=== PATIENT | male | born 1990 | race Caucasian/White ===

== ENCOUNTER 2016-08-07 18:29 | Emergency (ER) | payer OTHER ==
[2016-08-07] MEDS ORDERED: DEXAMETHASONE 10 MG/ML VIAL PO STA (18:58)
[2016-08-07] MEDS ORDERED: DEXAMETHASONE 10 MG/ML VIAL ONE (19:05)
[2016-08-07] MEDS ORDERED: CHERRY SYRUP 10 ML UDC PO ONE (19:05)
== END 2016-08-07 19:24 | disposition home or self-care (01) ==
DX: J02.8 Acute pharyngitis due to other specified organisms (principal); B97.89 Other viral agents as the cause of diseases classified elsewhere
CPT/HCPCS: 87070; 87430; 99283; A9270

== ENCOUNTER 2016-09-26 11:24 | Emergency (ER) | payer OTHER ==
[2016-09-26 11:52] VITALS: BP 145/74
[2016-09-26 12:21] LABS: RAPID STREP SCREEN REAGENT QC YELLOW (YELLOW)
[2016-09-26] MEDS ORDERED: IBUPROFEN 800 MG TABLET PO STA (13:20)
[2016-09-26] MEDS ORDERED: DEXAMETHASONE 10 MG/ML VIAL PO STA (13:20)
[2016-09-26] MEDS ORDERED: CHERRY SYRUP 10 ML UDC PO ONE (13:23)
[2016-09-26] MEDS ORDERED: DEXAMETHASONE 10 MG/ML VIAL ONE (13:23)
[2016-09-26] MEDS ORDERED: IBUPROFEN 800 MG TABLET PO ONE (13:23)
--- NOTE | 2016-09-26 13:24 | ED Physician Documentation ---
PD HPI HEENT - Stated complaint Stated Complaint: FEVER/SORE THROAT - Chief complaint Chief Complaint: General - History obtained from History obtained from: Patient, Family - History of Present Illness Timing - onset: How many days ago (3) Timing - duration: Days (3) Timing - details: Gradual onset, Still present Location: Throat Improves: Medication Worsens: Swalllowing Associated symptoms: Fever, Congestion, Swollen nodes, Headache, Cough Similar symptoms before: Diagnosis (strep pharyngitis) Recently seen: Clinic, Emergency Dept - Additional information Additional information: 26 y/o male with a sore throat for the past 3 days has had strep 16 times at age 9 and then had his tonsils out. He has had strep in July with a negative rapid strep followed by a culture +. He subsequently had a negative strep last month with sore throat as well. Review of Systems Constitutional: reports: Fever, Chills, Myalgias, Fatigue Eyes: denies: Decreased vision Ears: denies: Ear pain, Drainage/discharge Nose: reports: Rhinorrhea / runny nose, Congestion Throat: reports: Sore throat Cardiac: denies: Chest pain / pressure, Palpitations Respiratory: reports: Cough. denies: Dyspnea GI: denies: Vomiting PD PAST MEDICAL HISTORY - Past Surgical History Past Surgical History: Yes HEENT: Tonsil/Adenoidectomy - Present Medications Home Medications: Ambulatory Orders Medication Instructions Recorded Confirmed Amoxicillin 500 mg PO TID #30 capsule 09/26/16 - Allergies Allergies/Adverse Reactions: Allergies Allergy/AdvReac Type Severity Reaction Status Date / Time No Known Drug Allergies Allergy Verified 08/07/16 18:37 - Social History Does the pt smoke?: No Smoking Status: Never smoker Does the pt drink ETOH?: No Does the pt have substance abuse?: No - Immunizations Immunizations are current?: Yes - POLST Patient has POLST: No PD ED PE NORMAL - Vitals Vital signs reviewed: Yes (hypertensive and febrile ) - General General: No acute distress, Well developed/nourished - HEENT HEENT: Atraumatic, PERRL, EOMI, Other (both TM's are erythematous with distortion of the landmarks. The pharynx is with some swelling to the uvula that is midline. ) - Neck Neck: Supple, no meningeal sign, No bony TTP - Cardiac Cardiac: RRR, No murmur - Respiratory Respiratory: No respiratory distress, Clear bilaterally - Abdomen Abdomen: Soft, Non tender - Back Back: No CVA TTP, No spinal TTP - Derm Derm: Warm and dry, No rash - Extremities Extremities: No deformity, No edema - Neuro Neuro: No motor deficit, No sensory deficit - Psych Psych: Normal mood, Normal affect Results - Vitals Vitals: Vital Signs - 24 hr 09/26/16 11:49 Temperature 38.1 C H Heart Rate 68 Respiratory 16 Rate Blood Pressure 145/74 H O2 Saturation 100 Oxygen O2 Source Room air - Labs Labs: Laboratory Tests 09/26/16 11:55 Group A Strep Rapid POSITIVE H PD MEDICAL DECISION MAKING - ED course Complexity details: reviewed old records, reviewed results, re-evaluated patient , considered differential, d/w patient, d/w family ED course: 26 y/o male with sore throat and + strep screen has OM on exam as well. He has recurrence of symptoms and I have encouraged him to seek follow up with his primary to re-examine the ears in 2-3 weeks for resolution with the thought of treating if needed. Departure - Departure Disposition: 01 Home, Self Care Clinical Impression: Strep pharyngitis Otitis media Qualifiers: Otitis media type: suppurative Laterality: bilateral Chronicity: acute Recurrence: not specified as recurrent Spontaneous tympanic membrane rupture: without spontaneous rupture Qualified Code(s): H66.003 - Acute suppurative otitis media without spontaneous rupture of ear drum, bilateral Condition: Stable Instructions: ED Strep Pharyngitis Conf, ED Otitis Media Acute Adult Follow-Up: [facility] [Provider Group] Prescriptions: Amoxicillin 500 mg PO TID #30 capsule Comments: Today in the Emergency Department your blood pressure was elevated. This can happen from the stress of the visit itself, from a current illness or circumstance or from uncontrolled hypertension. If you take blood pressure medications take your usual mediations, have your blood pressure re-checked in an appropriate setting and follow up any elevation with your primary care doctor. Forms: Activity restrictions
== END 2016-09-26 13:42 | disposition home or self-care (01) ==
LOC: ED 11:24
DX: J02.0 Streptococcal pharyngitis (principal); H66.003 Acute suppurative otitis media without spontaneous rupture of ear drum, bilateral; R03.0 Elevated blood-pressure reading, without diagnosis of hypertension
CPT/HCPCS: 87430; 99282; 99283; A9270

== ENCOUNTER 2017-04-29 22:59 | Emergency (ER) | payer OTHER ==
[2017-04-29] MEDS ORDERED: DEXAMETHASONE 10 MG/ML VIAL PO STA (23:31)
[2017-04-29] MEDS ORDERED: PSEUDOEPHEDRINE 30 MG TABLET PO STA (23:31)
[2017-04-29] MEDS ORDERED: AMOX/CLAV 875 MG/125 MG TABLET PO STA (23:31)
[2017-04-29] MEDS ORDERED: KETOROLAC 60 MG/2 ML VIAL IM STA (23:31)
--- NOTE | 2017-04-29 23:38 | ED Physician Documentation ---
PD HPI HEENT - Stated complaint Stated Complaint: THROAT PX/MIGRAINE - Chief complaint Chief Complaint: Heent - History obtained from History obtained from: Patient - History of Present Illness Timing - onset: How many days ago (3) Timing - details: Gradual onset, Still present Location: Right ear, Left ear, Throat Improves: Medication Worsens: Swalllowing, Position Associated symptoms: Congestion. No: Fever Similar symptoms before: Work up / diagnostics, Treatment Recently seen: Not recently seen - Additional information Additional information: Patient is a 26 year old male with recurrent ear and throat infections who is presenting to the emergency department for sore throat and ear pain. patient states that he is coming back from leave, and over [place] last couple fo days he had really bad ear pain, and when he was on the plane he was unable to pop his ears and he still has a lot of worsening pressure. Review of Systems Constitutional: denies: Fever, Chills Ears: reports: Ear pain Nose: reports: Congestion Throat: reports: Sore throat Cardiac: reports: Reviewed and negative Respiratory: denies: Cough, Wheezing GI: reports: Reviewed and negative : reports: Reviewed and negative Musculoskeletal: reports: Reviewed and negative Neurologic: reports: Reviewed and negative PD PAST MEDICAL HISTORY - Past Medical History Past Medical History: Yes Other Past Medical History: Multi ear infections when young & strep - Past Surgical History Past Surgical History: Yes HEENT: Myringotomy (tubes), Tonsil/Adenoidectomy - Present Medications Home Medications: Ambulatory Orders Medication Instructions Recorded Confirmed Atorvastatin Calcium 80 mg PO DAILY 04/29/17 04/29/17 Doxepin HCl 10 mg PO PRN PRN 04/29/17 04/29/17 Gabapentin 100 mg PO PRN PRN 04/29/17 04/29/17 Guanfacine HCl [Guanfacine HCl ER] 1 mg PO DAILY 04/29/17 04/29/17 PARoxetine HCl [Paroxetine HCl] 20 mg PO DAILY 04/29/17 04/29/17 Propranolol ER [Inderal LA] 80 mg PO BID 04/29/17 04/29/17 - Allergies Allergies/Adverse Reactions: Allergies Allergy/AdvReac Type Severity Reaction Status Date / Time No Known Drug Allergies Allergy Verified 04/29/17 23:14 - Social History Does the pt smoke?: No Smoking Status: Never smoker Does the pt drink ETOH?: No Does the pt have substance abuse?: No - Immunizations Immunizations are current?: Yes - POLST Patient has POLST: No PD ED PE NORMAL - Vitals Vital signs reviewed: Yes - General General: Alert and oriented X 3, Well developed/nourished - HEENT HEENT: Atraumatic, PERRL, Moist mucous membranes - Neck Neck: Supple, no meningeal sign, No JVD - Cardiac Cardiac: RRR, No murmur - Respiratory Respiratory: No respiratory distress, Clear bilaterally - Abdomen Abdomen: Soft, Non distended - Derm Derm: Normal color, No rash - Extremities Extremities: No deformity - Neuro Neuro: Alert and oriented X 3, No motor deficit, No sensory deficit, Normal speech - Psych Psych: Normal mood PD ED PE EXPANDED - HEENT HEENT: R TM red, R TM retracted, R TM loss of landmarks, L TM red, L TM retracted, L TM loss of landmarks, Other (small vessicles on patients uvula) Results - Vitals Vitals: Vital Signs - 24 hr 04/29/17 04/30/17 23:12 00:10 Temperature 36.7 C 36.6 C Heart Rate 65 70 Respiratory 21 14 Rate Blood Pressure 135/83 H 139/57 H O2 Saturation 96 99 Oxygen O2 Source Room air - Labs Labs: Laboratory Tests 04/29/17 23:38 Group A Strep Rapid Negative PD MEDICAL DECISION MAKING - ED course Complexity details: reviewed old records, reviewed results, re-evaluated patient , considered differential, d/w patient ED course: Patient was seen and examined at bedside. patient had severe bilateral otitis media and recent antibiotics. patient was treated with toradol, decadron and augmentin. Patient required no further inpatient testing at this time and was stable for discharge with outpatient follow up. Departure - Departure Disposition: 01 Home, Self Care Clinical Impression: Otitis media Condition: Stable Instructions: ED Otitis Media Acute Adult Follow-Up: primary,care provider [Other] - Within 3 Days Comments: Your symptoms today are being caused by bilateral ear infections. You have been given your first dose of antibiotics and will need to be on them for the next week. You can take motrin, tylenol and over the counter decongestants to help with the pain. You should follow up with your doctor if your symptoms persist through the weekend. You may return to the emergency department at any time for new, worsening or uncontrollable symptoms. Forms: Activity restrictions Discharge Date/Time: 04/30/17 00:12
[2017-04-29] MEDS ORDERED: AMOX/CLAV 875 MG/125 MG TABLET PO ONE (23:43)
[2017-04-29] MEDS ORDERED: PSEUDOEPHEDRINE 30 MG TABLET PO ONE (23:43)
[2017-04-29] MEDS ORDERED: CHERRY SYRUP 10 ML UDC PO ONE (23:44)
[2017-04-29] MEDS ORDERED: KETOROLAC 60 MG/2 ML VIAL ONE (23:44)
[2017-04-29] MEDS ORDERED: DEXAMETHASONE 10 MG/ML VIAL ONE (23:44)
[2017-04-30 00:06] LABS: RAPID STREP SCREEN REAGENT QC YELLOW (YELLOW)
[2017-04-30 00:12] VITALS: BP 139/57
== END 2017-04-30 00:12 | disposition home or self-care (01) ==
LOC: ED 22:59
DX: H66.93 Otitis media, unspecified, bilateral (principal)
CPT/HCPCS: 87070; 87430; 96372; 99283; A9270

== ENCOUNTER 2018-07-22 18:47 | Emergency (ER) | payer OTHER ==
[2018-07-22 18:57] VITALS: BP 159/85
[2018-07-22] MEDS ORDERED: IBUPROFEN 800 MG TABLET PO STA (19:29)
[2018-07-22] MEDS ORDERED: DEXAMETHASONE 10 MG/ML VIAL PO STA (19:29)
--- NOTE | 2018-07-22 19:31 | ED Physician Documentation ---
History of Present Illness - Stated complaint Stated Complaint: FLU SYMPTOMS - Chief complaint Chief Complaint: General - History obtained from History obtained from: Patient - History of Present Illness Timing: Yesterday Pain level max: 8 Pain level now: 8 - Additonal information Additional information: 27-year-old male presents to the emergency department with a sore throat, cough and congestion today. Has a history of recurrent streptococcal pharyngitis. States he has had it over 20 times in his life. Has had his tonsils removed and still frequently has streptococcal pharyngitis. No nausea or vomiting. Has had fevers and chills. No abdominal pain. No rash. Worse with eating and drinking, better with rest Review of Systems Constitutional: reports: Fever, Chills GI: denies: Vomiting Skin: denies: Rash Musculoskeletal: denies: Neck pain, Back pain Neurologic: denies: Headache PD PAST MEDICAL HISTORY - Past Medical History Past Medical History: No - Past Surgical History Past Surgical History: Yes HEENT: Myringotomy (tubes), Tonsil/Adenoidectomy - Present Medications Home Medications: Ambulatory Orders Medication Instructions Recorded Confirmed Atorvastatin Calcium 80 mg PO DAILY 04/29/17 04/29/17 Doxepin HCl 10 mg PO PRN PRN 04/29/17 04/29/17 Gabapentin 100 mg PO PRN PRN 04/29/17 04/29/17 Guanfacine HCl [Guanfacine HCl ER] 1 mg PO DAILY 04/29/17 04/29/17 PARoxetine HCl [Paroxetine HCl] 20 mg PO DAILY 04/29/17 04/29/17 Propranolol ER [Inderal LA] 80 mg PO BID 04/29/17 04/29/17 Ibuprofen [Motrin] 800 mg PO Q8H PRN #30 tablet 07/22/18 Penicillin V Potassium 500 mg PO Q6HR #40 tablet 07/22/18 - Allergies Allergies/Adverse Reactions: Allergies Allergy/AdvReac Type Severity Reaction Status Date / Time No Known Drug Allergies Allergy Verified 04/29/17 23:14 - Social History Does the pt smoke?: No Smoking Status: Never smoker Does the pt drink ETOH?: No Does the pt have substance abuse?: No - Immunizations Immunizations are current?: Yes - POLST Patient has POLST: No PD ED PE NORMAL - Vitals Vital signs reviewed: Yes - General General: Alert and oriented X 3, No acute distress, Well developed/nourished - HEENT HEENT: PERRL, Moist mucous membranes, Other (Left tympanic membrane is normal. Right tympanic membrane is erythematous, dull, bulging with fluid present. Also has moderate posterior oropharyngeal erythema with Swollen uvula.) - Neck Neck: Supple, no meningeal sign, Other (Shotty anterior lymphadenopathy) - Cardiac Cardiac: RRR, Strong equal pulses - Respiratory Respiratory: No respiratory distress, Clear bilaterally - Abdomen Abdomen: Soft, Non tender, Non distended - Derm Derm: Warm and dry, No rash - Neuro Neuro: Alert and oriented X 3 Results - Vitals Vitals: Vital Signs - 24 hr 07/22/18 18:51 Temperature 37.6 C H Heart Rate 84 Respiratory 16 Rate Blood Pressure 159/85 H O2 Saturation 100 Oxygen O2 Source Room air - Labs Labs: Laboratory Tests 07/22/18 18:54 Influenza A (Rapid) Negative Influenza B (Rapid) Negative PD MEDICAL DECISION MAKING - ED course Complexity details: reviewed results, considered differential, d/w patient ED course: 27-year-old male presents to the emergency department with what appears to be strep pharyngitis as well as likely right acute otitis media. Will place on penicillin and given dexamethasone here. He is well-appearing, nontoxic. Tolerating p.o. without difficulty. No evidence of abscess. Patient counseled regarding signs and symptoms for which I believe and urgent re-evaluation would be necessary. Patient with good understanding of and agreement to plan and is comfortable going home at this time This document was made in part using voice recognition software. While efforts are made to proofread this document, sound alike and grammatical errors may occur. Departure - Departure Disposition: 01 Home, Self Care Clinical Impression: Strep pharyngitis Condition: Good Instructions: ED Strep Pharyngitis Conf Follow-Up: your,doctor in 1week [Other] Prescriptions: Penicillin V Potassium 500 mg PO Q6HR #40 tablet Ibuprofen [Motrin] 800 mg PO Q8H PRN #30 tablet PRN Reason: PAIN &/OR FEVER Comments: Drink plenty of fluids and rest. Return if you worsen. Follow-up with your d octor for further care. Forms: Activity restrictions
== END 2018-07-22 19:42 | disposition home or self-care (01) ==
LOC: ED 18:47
DX: J02.0 Streptococcal pharyngitis (principal)
CPT/HCPCS: 87275; 87276; 99283; A9270